=== PATIENT | female | born 1960 | race Caucasian/White ===

== ENCOUNTER 2023-06-23 16:30 | Emergency (ER) | payer BC ==
[~2023-06-23] VITALS: Ht 170.2 cm; Wt 96.7 kg
[2023-06-23 16:42] VITALS: BP 152/101; PULSE 77; RESP 14; TEMP 98.9; O2SAT 95
[2023-06-23] MEDS ORDERED: AMOX-117 PO (18:11)
[2023-06-23] MEDS: amox tr/potassium clavulanate 875/125mg TAB PO ONE (18:12)
== END 2023-06-23 18:37 | disposition home or self-care (01) ==
LOC: ER 16:31
DX: K04.7 Periapical abscess without sinus (principal)
CPT/HCPCS: 99283

== ENCOUNTER 2023-07-16 15:49 | Emergency (ER) | payer BC, OTHER ==
[~2023-07-16] VITALS: Ht 180.3 cm; Wt 93.2 kg
[2023-07-16 15:51] VITALS: BP 137/102; PULSE 79; RESP 18; O2SAT 95
[2023-07-16] MEDS: amox tr/potassium clavulanate 875/125mg TAB PO ONE (16:22)
[2023-07-16] MEDS: ibuprofen tablet 400 MG TABLET PO ONE (16:22)
[2023-07-16] MEDS ORDERED: AMOX-580 PO (16:29)
[2023-07-16 16:52] VITALS: TEMP 98.9
== END 2023-07-16 16:55 | disposition home or self-care (01) ==
LOC: ER 15:49
DX: K04.7 Periapical abscess without sinus (principal); Z79.2 Long term (current) use of antibiotics
CPT/HCPCS: 99283